=== PATIENT | male | born 1975 | race Caucasian/White ===

== ENCOUNTER 2016-10-03 11:30 | Emergency (ER) | payer MEDICARE, OTHER ==
[2016-10-03 11:42] VITALS: BP 138/93
--- OUTSIDE RECORDS SUMMARY | 2016-10-03 12:18 | XMS REPORT | Continuity of Care Document ---
:1975 Author Organization [facility] ([facility]) Address [place] [address] Phone [phone] Care Team Providers Name Role Phone Abhinav Pacheco Primary Care Provider [phone] Source Comments This disclosure is being made pursuant to the Care Everywhere program, applicable federal and state laws, and may not contain all informaitonavailable regarding this patient.[facility] ([facility]) Active Allergies and Adverse Reactions No Known Allergies Current Medications Prescription Sig. Disp. Refills Start End Status Date Date SUMAtriptan Take 100 mg by mouth Active (IMITREX) 100 mg once when needed. tablet levothyroxine Take 25 mcg by mouth Active (SYNTHROID) 25 daily. 1 mcg tablet aspirin 81 mg EC Take 81 mg by mouth Active tablet daily. acetaminophen 650 Take 1 Tab by mouth 100 Tab 11 Active mg Tab every 4 hours as 2 needed for Pain. Indications: FEVER, PAIN HYDROmorphone 2 Take 1-2 Tabs by 100 Tab 0 Active mg tablet mouth every 4 hours 2 as needed. Indications: PAIN pantoprazole 40 Take 1 Tab by mouth 30 Tab 0 Active mg EC tablet daily. Indications: 2 GASTRIC HYPERSECRETORY CONDITIONS simvastatin 20 mg Take 1 Tab by mouth 30 Tab 2 Active tablet at bedtime. 2 Indications: ARTERIOSCLEROTIC VASCULAR DISEASE escitalopram Take 20 mg by mouth Active oxalate 20 mg daily. tablet OXYBUTYNIN 10 mg Take 1 tablet (10 mg 30 tablet Active CR tablet total) by mouth at 6 bedtime. Take with evening meal mycophenolate Take 2 tablets 120 tablet Active mofetil 500 mg (1,000 mg total) by 6 tablet mouth 2 times daily. lisinopril 10 mg Take 1 tablet (10 mg 30 tablet 11 Active tablet total) by mouth 6 daily. Catheter 1 Each 6 times 180 Each Active (SELF-CATH) 14-16 daily. 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 Dual chamber [employer] Altrua [id number] implanted 02/05/2010 for complete heart block. The LV lead is in the RV port of device due to tricuspid valve replacement. Ulcers, marginal 02/24/2013 Diarrhea 02/23/2013 Immunosuppression due to post transplant 02/23/2013 Elevated LFTs 02/23/2013 Syncope 06/20/2012 Edema 11/28/2011 Hypotonicity of bladder 11/23/2011 Kidney replaced by transplant 11/22/2011 Aftercare following organ transplant 11/22/2011 Encounter for long-term (current) use of medications 11/22/2011 Overview: icd10 Status post tricuspid valve replacement 01/30/2010 Secondary hyperparathyroidism (of renal origin) 09/30/2008 Esophageal reflux 08/04/2008 Resolved Problems Problem Noted Date Resolved Date Frontal sinusitis 02/24/2013 02/26/2013 Acute kidney injury (nontraumatic) 02/24/2013 02/26/2013 Vomiting alone 02/23/2013 02/26/2013 Fever, unspecified 02/23/2013 03/03/2015 Gram-positive bacilli bacteremia 02/23/2013 03/03/2015 SEAN (acute kidney injury) on CKD 02/23/2013 02/26/2013 Urine leaking from renal pelvis after kidney transplant 06/20/2012 04/22/2016 S/P cardiac pacemaker procedure 02/05/2010 07/23/2013 Septicemia 02/04/2010 11/28/2011 End stage renal disease on dialysis 04/21/2009 11/28/2011 Overview: Neurogenic bladder secondary to spina bifida oculta Sinusitis 11/28/2008 11/28/2011 Viral hepatitis A without mention of hepatic coma 09/15/2008 02/17/2009 Viral hepatitis B without mention of hepatic coma, acute or 09/15/20082008 unspecified, without mention of hepatitis delta Unspecified viral infection, in conditions classified elsewhere 09/15/2008 and of unspecified site Fever, unspecified 08/22/2008 02/17/2009 Thrombocytopenia, unspecified 08/15/2008 02/17/2009 Other testicular hypofunction 06/04/2008 02/17/2009 Sweating fever 06/04/2008 11/28/2011 End stage renal disease 05/26/2008 11/28/2011 Abdominal pain, unspecified site 05/16/2008 02/17/2009 Most Recent Encounters Date Type Specialty Providers Description 09/08/2016 Orders Only Transplant KATERINE/Donaldo Field MD Dx: Kidney replaced by transplant (Primary Dx) 09/06/2016 Refill Transplant Fidelia Calix RN Dx: H/O kidney transplant (Primary Dx) Immunizations Name Dates Previously Given Next Due Hepatitis B, adult 04/29/2011,01/25/2011,11/30/2010,10/09,04/21/2009 Hepatitis B, unspecified 12/26/2008,07/25/2008,05/26/2008,07/10 Influenza 04/21/2009 Influenza, PF 04/26/2011 Influenza, unspecified 05/28/2008 Pneumococcal Polysaccharide, PPSV23 06/09/2008 (Pneumovax 23) Social History Tobacco Use Types Packs/Day Years Used Date Current Every Day Smoker Cigarettes 0.5 15 Quit: 03/10/2008 Smokeless Tobacco: Never Used Tobacco Cessation:Counseling Given: Yes Comments: Alcohol Use Drinks/Week oz/Week Comments Yes 2 Cans of beer 1.5 - 2.5 2 Standard drinks or equivalent Last Filed Vital Signs Vital Sign Reading Time Taken Blood Pressure 131/93 04/22/2016 9:29 AM CDT Pulse 80 04/22/2016 9:29 AM CDT Temperature 36.8 C (98.2 F) 04/22/2016 9:29 AM CDT Respiratory Rate 16 02/26/2013 4:00 PM CDT Height 1.778 m (5' 10") 03/04/2014 1:28 PM CDT Weight 98.2 kg (216 lb 7.9 oz) 04/22/2016 9:29 AM CDT Body Mass Index 31.06 04/22/2016 9:29 AM CDT Oxygen Saturation 98% 07/23/2013 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 Plan of Care Date Type Specialty Providers Description 04/26/2017 Appointment Transplant KATERINE/CHINTAN/GEORGE Default, Other Billg - [facility] [address] [place] [address] [phone] (Fax) Subj: Appointment Nephrology, Transplant Sv Rescheduled Health Maintenance Due Date Last Done Comments Tdap Vaccine 1986 MMR Vaccine 1993 Td Vaccine 1993 Pneumococcal Vaccine (2 of 3 06/09/2009 06/09/2008 - PCV13) Influenza Vaccine: Seasonal 02/08/2016 04/26/2011, (#1) 04/21/2009, 05/28/2008 Lipid Disorder Screening 12/05/2016 12/06/2011, Additional history exists 06/21/2011, 01/25/2011 Hepatitis B Vaccine Completed 04/29/2011, Additional history exists 01/25/2011, 11/30/2010 Results from Last 3 Months EXTERNAL CO2 (07/29/2016) Component Value Range Ext CO2 21.9(A) 24-32 MEQ/L EXTERNAL PLATELET COUNT (07/29/2016) Component Value Range Ext Platelet Count 129 EXTERNAL WBC (07/29/2016) Component Value Range Ext WBC 6.2 K/MM3 EXTERNAL HEMOGLOBIN (07/29/2016) Component Value Range Ext Hemoglobin 17.5 G/DL EXTERNAL POTASSIUM (07/29/2016) Component Value Range Ext Potassium 4.8 3.5-5.0 MEQ/L EXTERNAL CREATININE (07/29/2016) Component Value Range Ext Creatinine 1.44(A) 0.7-1.4 MG/DL EXTERNAL BLOOD UREA NITROGEN (BUN) (07/29/2016) Component Value Range Ext BUN 29(A) 10-20 MG/DL EXTERNAL TACROLIMUS DRUG LEVEL (07/29/2016) Component Value Range Ext Tacrolimus 7.8 5-15 NG/ML
--- NOTE | 2016-10-03 13:17 | ERNOTE ---
ENT HPI Date of Service: 10/03/16 Presenting Symptoms: other - sinus Time Seen by Provider: 10/03/16 11:49 Source: patient Exam Limitations: no limitations - Immun/Allergies/Home Medications Immunizations: IMMUNIZATION HX Immunizations Up to Date Yes History of Influenza Vaccine No Hx Pneumococcal Vaccination No Allergies/Adverse Reactions: Allergies Allergy/AdvReac Type Severity Reaction Status Date / Time codeine [Codeine] Allergy Mild Nausea Verified 10/03/16 11:42 Home Medications: HOME MEDICATIONS Aspirin [Aspirin Chewable] 81 mg PO DAILY 05/21/14 [Last Taken Unknown] Escitalopram Oxalate [Lexapro] 10 mg PO DAILY 05/21/14 [Last Taken Unknown] HYDROmorphone HCL [Dilaudid] 2 mg PO QID PRN 05/21/14 [Last Taken Unknown] Levothyroxine Sodium [Synthroid] 25 mcg PO DAILY 05/21/14 [Last Taken Unknown] Mycophenolate Mofetil [Cellcept] 500 mg PO BID 05/21/14 [Last Taken Unknown] Pantoprazole Sodium [Protonix] 40 mg PO DAILY 05/21/14 [Last Taken Unknown] SUMAtriptan SUCCINATE [Imitrex] 100 mg PO Q2H PRN 05/21/14 [Last Taken Unknown] Simvastatin [Zocor] 20 mg PO HS 05/21/14 [Last Taken Unknown] Sirolimus [Rapamune] 1 mg PO DAILY 05/21/14 [Last Taken Unknown] Doxycycline Hyclate [Vibratab] 100 mg PO BID #20 tab 01/18/16 [Last Taken Unknown] Promethazine HCl/Codeine [Phenergan W/Codeine Syrup] 5 ml PO Q4H PRN #180 ml 05/25 [Last Taken Unknown] - History of Present Illness Narrative: 41-year-old male patient presenting to the emergency room for sinus pain. States he is generally sinus pressure in his ears feel full. Date (Duration): 10/03/16 Severity: Present: mild Prearrival Treatment: Present: no prearrival treatment Modifying Factors - Improves: Reports: lying down - makes him cough Modifying Factors - Worsens: Reports: rest Associated Symptoms - ENT: Reports: nasal congestion/drainage, facial pain/ swelling. Denies: fever, malaise, cough Review of Systems - Review of Systems Constitutional: Present: no symptoms reported. Absent: fever EYE: Present: no symptoms reported ENT: Present: See HPI, nose congestion, nasal drainage, sore throat Respiratory: Present: no symptoms reported Cardiology: Present: no symptoms reported Gastrointestinal/Abdominal: Present: no symptoms reported Genitourinary: Present: no symptoms reported Musculoskeletal: Present: no symptoms reported Skin: Present: no symptoms reported Neurological: Present: no symptoms reported Endocrine: Present: no symptoms reported Hematologic/Lymphatic: Present: no symptoms reported Psych: Present: no symptoms reported - Patient's Past Medical History Patient History - Medical: Renal Disease, Renal Failure Patient History - Cardiac/Respiratory: Other Patient History - Cancer: No Hx of Cancer Patient History - Surgical Procedures: Pacemaker, Other Patient History - Other: None - Social History Living Situations: home Psych History: Hx of Depression - Immunizations Immunizations Up to Date: Yes Hx Pneumococcal Vaccination: No History of Influenza Vaccine: No Physical Exam - Physical Exam Narrative: patient has boggy nasal turbines, and post nasal drip. c/o increased cough with layng flat. and his eyes are watery from time to time. General Appearance: Present: wd/wn Eye Exam: Normal inspection: bilateral Ears, Nose, Throat: Present: abnormal TM (R) - fluid, abnormal TM (L) - fluid, nasal congestion, sinus pain/drainage. Absent: pharyngeal erythema, pharyngeal swelling, tonsillar swelling Neck: Present: normal inspection, nontender Respiratory: Present: no respiratory distress, lungs clear Cardiovascular/Chest: Present: regular rate, rhythm Gastrointestinal/Abdominal: Present: normal bowel sounds Extremity Exam: Present: normal inspection Neurological Exam: Present: alert, oriented Skin Exam: Present: normal color Lymphatic Exam: Present: no adenopathy ED Progress - Results and Orders Patient's Lab Results:: I have reviewed the patient's lab results. Results and Orders: strep negative - Vital Signs Patient's Vital Signs:: I have reviewed the patient's vital signs. Vital Signs: Vital Signs 10/03/16 11:39 Temperature 36.8 C Pulse Rate 72 Respiratory 16 Rate Blood Pressure 138/93 O2 Sat by Pulse 96 Oximetry - Progress/Reassessment Chief Complaint: Sore Throat Progress:: Improved Departure Clinical Impression: Environmental and seasonal allergies - Departure Disposition: Home self-care Condition: Stable Instructions: Allergies, [id number] Additional Instructions: Patient may continue [id number] Claritin and Flonase. If symptoms return or if he develops a fever he should return to the emergency room. you may follow up with you primary care provider in a few days. Referrals: Abhinav Pacheco MD [Primary Care Provider] -
== END 2016-10-03 13:26 | disposition home or self-care (01) ==
LOC: ER 11:30
DX: J30.2 Other seasonal allergic rhinitis (principal); Z95.5 Presence of coronary angioplasty implant and graft